=== PATIENT | female | born 1965 | race Asian ===

== ENCOUNTER 2018-03-04 08:17 | Day surgery (SDC) | payer OTHER ==
[~2018-03-04] VITALS: Ht 160 cm; Wt 81.6 kg
[2018-03-04 09:31] VITALS: BP 122/74
[2018-03-04 15:51] VITALS: BP 112/66
== END 2018-03-04 15:45 | disposition home or self-care (01) ==
LOC: DS 08:17 → OR 10:30 → DS 15:45
PROVIDERS: Neuromusculoskeletal Medicine, Sports Medicine
PROC: 3E0U33Z Introduction of Anti-inflammatory into Joints, Percutaneous Approach (ICD-10-PCS; 2018-03-04)
PROC: 3E0U3BZ Introduction of Anesthetic Agent into Joints, Percutaneous Approach (ICD-10-PCS; 2018-03-04)
PROC: 0RNKXZZ Release Left Shoulder Joint, External Approach (ICD-10-PCS; principal; 2018-03-04 10:30)
DX: M75.02 Adhesive capsulitis of left shoulder (principal)
CPT/HCPCS: J1030; J2001; J2175; J2250; J2704; J3010; J7120